=== PATIENT | female | born 1990 | race Caucasian/White ===

== ENCOUNTER 2022-07-14 14:16 | Inpatient (IN) ==
[2022-07-14] MEDS ORDERED: OXYTOCIN 30 UNITS/500 ML BAG IV PRN ×2 (15:07)
[2022-07-14] MEDS ORDERED: LIDOCAINE 1% LOCAL 20 ML VIAL INFIL PRN (15:07)
[2022-07-14 15:53] LABS: Hematocrit (blood only) 34.9 % (37.0-47.0); Hemoglobin 11.6 g/dl (12.0-16.0); Mean Corpuscular Hemoglobin 29.4 pg (25.0-34.0); Mean Corpuscular Hgb Conc 33.2 g/dL (32.0-36.0); Mean Corpuscular Volume 88.4 fL (80.0-100.0); Mean Platelet Volume 11.5 fL (9.4-12.4); Platelet Count 238 K/uL (130-400); RDW Coefficient of Variation 13.4 % (11.5-14.5); RDW Standard Deviation 43.2 fL (36.4-46.3); Red Blood Count 3.95 M/uL (4.20-5.40); White Blood Count 9.28 K/ul (4.8-10.8)
[2022-07-14] MEDS: LACTATED RINGER'S 1,000 ML IV PRN ×2 (15:55→19:19)
[2022-07-14 16:10] LABS: Albumin Globulin Ratio 1.1 (0.9-2); Albumin Level 3.4 gm/dl (3.4-5.0); BUN Creatinine Ratio 15.6 (10-20); Bilirubin,Total 0.3 mg/dl (0.2-1.0); Calcium 9.2 mg/dl (8.5-10.1); Creatinine Clr Calc Pharmacy 150.3 ml/min; Est GFR (African American) 135.9 ml/min; Est GFR (Non-African American) 117.2 ml/min; Globulin 3.2 gm/dl (2.5-4.0); Potassium 4.1 mmol/L (3.5-5.1); Total Protein 6.6 gm/dl (6.0-8.3)
[2022-07-14 16:32] LABS: Total Protein Urine Random 10.4 mg/dl (0-11.9)
[2022-07-14 16:38] LABS: Creatinine Urine Random 60.2 mg/dl; Protein Creatinine Ratio Urine 0.2 (0-0.2)
--- NOTE | 2022-07-14 16:45 | History & Physical Report ---
Date of Service July 14, 2022 Assessment & Plan (1) Supervision of normal intrauterine in primigravida: Plan: Admit to L&D. EFM/toco. Labs. I ordered preeclampsia labs with her admission labs, as initial BPs were elevated. We discussed plans - recommend merchant bulb for cervical ripening, with gradual increase of pitocin. She is agreeable with plan. Undecided on epidural. Merchant bulb was placed, 35cc sterile water. Tolerated well. Admission and Anticipated Discharge Date Admission Date: July 14, 2022 History of Present Illness Chief Complaint: nonreactive NST and 6/8 BPP at office Primary Care Provider: Trudi Roe 32yo @ 39 06/19, presented to office today in advance of tomorrow's scheduled IOL. She is undergoing testing d/t Sjogrens antibody, and nonstress test was nonreactive, and then subsequent BPP was 6/8. She was directed to L&D for induction of labor. with: Vegan diet -pnv, discussed Migraines- stopped propranolol and imitrex with . Will notify us if PCP needs to restart her beta maria esther, aware we would need growth scans. [place] [facility] [place] request[place]sjogrens antibody flagged 1.0 *[place] [facility] [place]Per [place] Consult Notes *Growth Scan Q4wks *Wkly NST's @ 36 wks *Rec Delivery at or after 39 weeks but not over 40 Allergies Allergy/AdvReac Type Severity Reaction Status Date / Time No Known Allergies Allergy Verified 07/14/22 15:49 Home Medications Medication Instructions Recorded Confirmed Type fexofenadine 180 mg tablet 180 mg PO DAILY 01/15/20 07/14/22 History (Beryl Allergy) vitamin B complex 1 tab PO DAILY 01/15/20 07/14/22 History prenat.vits,gavino,anq-riqp-fpcnk 1 tab PO DAILY 12/10/21 07/14/22 History Patient History Surgical History History of sinus surgery Family History (Updated 12/10/21 @ 09:55 by Cecilia Proctor) Other Cancer Diabetes Hypertension Social History (Updated 12/10/21 @ 09:56 by Cecilia Proctor) Smoking Status: Never smoker Second Hand Exposure: No; Do You Dip or Chew Tobacco: No; Tobacco Cessation Education Requested by Patient: No Hx Alcohol Use: No Hx Substance Use: No Preferred Language: Greenlandic Communication Ability: Effective Public Relations Manager Required: No Beliefs That Will Affect Care: None marital status: marital status details: Jesus Alberto (37) [phone] Current Living Situation: Spouse Current Living Situation Comment: Pt lives with her Jesus Alberto Cohen current occupational status: employed current occupation: Accademic Advisor @ [employer] Other Information That Helps Us Care for You: No Feels Safe at Home: Yes Safety Concerns: Feels Safe At This Time Sunscreen Use: Yes Assistive Devices: None Review of Systems All systems reviewed & are unremarkable except as noted in HPI & below Physical Exam Physical Exam: FHT Cat 1 [place] Rare SVE /high Constitutional: WD/WN, vitals as above Respiratory: normal respiratory effort, lungs clear to auscultation no respiratory distress Cardiovascular: Rate/Rhythm: regular rate and regular rhythm Gastrointestinal (Abdomen): Inspection/Auscultation: abdomen normal to inspection Percussion/Palpation: abdomen soft; abdomen nontender Gravid. No s/s chorio or abruption. Skin: no rashes, warm and dry Psychiatric: A+Ox3, euthymic affect Results & Data ([facility]) Vital Signs (Past 12 Hours) Vital Signs Temp Pulse Resp BP 07/14/22 14:58 37.6 C H 18 07/14/22 16:30 64 139/72 07/14/22 16:20 65 153/74 H 07/14/22 16:12 82 174/103 H 07/14/22 16:02 80 147/78 H 07/14/22 15:49 63 146/93 H 07/14/22 15:39 72 149/91 H 07/14/22 15:30 78 152/98 H 07/14/22 15:19 73 142/89 H 07/14/22 15:09 69 142/91 H 07/14/22 14:50 90 142/98 H 07/14/22 14:39 81 135/97 07/14/22 14:27 92 H 134/95 Coding Level of Care Code None Diagnoses Supervision of normal intrauterine in primigravida Z34.00
[2022-07-15] MEDS: LACTATED RINGER'S 1,000 ML IV PRN ×3 (00:47→11:10)
[2022-07-15] MEDS ORDERED: ePHEDrine sulfate 50 MG/ML AMP ONE (01:05)
[2022-07-15] MEDS ORDERED: LIDOCAINE 2%/EPINEPHRINE 1:200,000 20 ML SDV ONE ×2 (01:06→15:23)
[2022-07-15] MEDS ORDERED: fentaNYL 2MCG/ML ROPIVACAINE 1.25MG/ML 100 ML BAG EPI ONE (01:06)
[2022-07-15] MEDS ORDERED: BUPIVACAINE 0.25% 30 ML VIAL ONE (01:06)
[2022-07-15] MEDS ORDERED: fentaNYL citrate 100 MCG/2 ML VIAL ONE (01:06)
[2022-07-15] MEDS ORDERED: SODIUM CHLORIDE 0.9% INJ 10 ML VIAL ONE (01:06)
[2022-07-15] MEDS ORDERED: fentaNYL 2MCG/ML ROPIVACAINE 1.25MG/ML 100 ML BAG EPI PRN (02:00)
[2022-07-15] MEDS ORDERED: NALOXONE HCL 1 MG in SODIUM CHLORIDE 0.9% 1000ML 1,000 ML IV PRN ×2 (02:00→16:03)
[2022-07-15] MEDS ORDERED: diphenhydrAMINE 50 MG/ML VIAL IV PRN ×2 (02:00→16:03)
[2022-07-15] MEDS ORDERED: ePHEDrine sulfate 50 MG/ML AMP IV PRN ×2 (02:00→16:03)
[2022-07-15] MEDS ORDERED: NALOXONE HCL 0.4 MG/1 ML VIAL/CARP IV PRN ×2 (02:00→16:03)
[2022-07-15] MEDS ORDERED: NALBUPHINE HCL INJ 10 MG/ML AMP IV PRN ×2 (02:00→16:03)
--- NOTE | 2022-07-15 02:04 | Anesthesiology Consultation ---
Date of Service July 15, 2022 Assessment & Plan Chart Review Chart Review: Acceptable Risk for Labor Epidural Consults Requested none History Height/Weight Height: 5 ft 7 in Weight: 97.976 kg Allergies Allergy/AdvReac Type Severity Reaction Status Date / Time No Known Allergies Allergy Verified 07/14/22 15:49 Medications Home Medications Medication Instructions Recorded Confirmed Last Taken fexofenadine 180 mg tablet 180 mg PO DAILY 01/15/20 07/14/22 07/13/22 20:00 (Beryl Allergy) vitamin B complex 1 tab PO DAILY 01/15/20 07/14/22 07/13/22 2000 prenat.vits,gavino,mli-qwli-urvuh 1 tab PO DAILY 12/10/21 07/14/22 07/14/22 0800 Active Medications Generic Name Dose Route Start Last Admin Trade Name Freq PRN Reason Stop Dose Admin Oxytocin 30 units in 500 mls @ 17 mls/hr 07/14/22 15:07 07/14/22 21:00 Pitocin IV 07/16/22 15:06 1.02 units/hr .Q24H PRN 17 mls/hr Labor Induction/Augmentation Titration Protocol 1.02 UNITS/HR Lactated Ringer's 1,000 mls @ 125 mls/hr 07/14/22 15:07 07/15/22 00:54 Lr IV 07/16/22 15:06 999 mls/hr .Q8H PRN Infusion L&D Protocol Protocol Past Family History Family History (Updated 12/10/21 @ 09:55 by Cecilia Proctor) Other Cancer Diabetes Hypertension Past Surgical History Surgical History History of sinus surgery Social History Smoking Status: Never smoker Do You Dip or Chew Tobacco: No Hx Alcohol Use: No Hx Substance Use: No Physical Exam Vital Signs Last Vital Signs Temp 36.9 C 07/14/22 19:06 Pulse 74 07/15/22 02:03 Resp 18 07/14/22 19:06 BP 129/75 07/15/22 02:03 Pulse Ox 97 07/15/22 02:01 Testing Laboratory Results 07/14/22 15:27 07/14/22 15:27
[2022-07-15] MEDS ORDERED: CITRIC ACID/SODIUM CITRATE 15 ML UDC PO SCH (06:00)
--- NOTE | 2022-07-15 08:37 | Labor Progress Brief Note ---
Date of Service July 15, 2022 Subjective Comfortable with epidural. FHT Cat 1 [place] Q 2 SVE 5-6/70/-2 AROM clear with blood tinge Bladder emptied for 900cc. Continue labor. Assessment & Plan Admission and Anticipated Discharge Date Admission Date: July 14, 2022 Results & Data ([facility]) Vital Signs (Past 12 Hours) Vital Signs Temp Pulse Resp BP Pulse Ox 07/15/22 07:15 36.8 C 20 07/15/22 08:33 59 L 144/83 H 07/15/22 08:31 66 96 07/15/22 08:26 70 96 07/15/22 08:23 75 94 07/15/22 08:21 63 96 07/15/22 08:19 71 146/78 H 07/15/22 08:16 67 96 07/15/22 08:11 72 96 07/15/22 08:06 68 97 07/15/22 08:03 93 H 121/79 07/15/22 08:01 75 96 07/15/22 07:56 88 97 07/15/22 07:51 68 97 07/15/22 07:49 75 132/83 07/15/22 07:46 73 97 07/15/22 07:41 72 98 07/15/22 07:36 84 98 07/15/22 07:33 59 L 123/71 07/15/22 07:31 63 96 07/15/22 07:26 61 96 07/15/22 07:21 63 97 07/15/22 07:19 64 124/75 07/15/22 07:16 64 97 07/15/22 07:11 71 97 07/15/22 07:06 72 97 07/15/22 07:04 62 131/68 07/15/22 07:01 64 96 07/15/22 06:56 77 96 07/15/22 06:51 60 96 07/15/22 06:48 57 L 139/79 07/15/22 06:46 60 96 07/15/22 06:41 59 L 96 07/15/22 06:36 59 L 96 07/15/22 06:33 55 L 139/72 07/15/22 06:31 59 L 96 07/15/22 06:26 58 L 96 07/15/22 06:21 73 97 07/15/22 06:18 61 128/69 07/15/22 06:16 71 98 07/15/22 06:11 59 L 97 07/15/22 06:06 59 L 96 07/15/22 06:04 57 L 131/68 07/15/22 06:01 60 97 07/15/22 05:56 56 L 96 07/15/22 05:51 68 98 07/15/22 05:48 78 115/70 07/15/22 05:46 57 L 98 07/15/22 05:41 56 L 97 07/15/22 05:36 57 L 97 07/15/22 05:33 57 L 128/77 07/15/22 05:31 57 L 97 07/15/22 05:26 74 96 07/15/22 05:21 60 97 07/15/22 05:18 58 L 126/79 07/15/22 05:16 73 98 07/15/22 05:11 101 H 97 07/15/22 05:06 63 95 07/15/22 05:03 60 127/75 07/15/22 05:01 60 95 07/15/22 05:00 62 94 07/15/22 04:56 66 95 07/15/22 04:53 67 94 07/15/22 04:51 86 97 07/15/22 04:48 56 L 125/69 07/15/22 04:46 61 97 07/15/22 04:41 61 97 07/15/22 04:36 62 95 07/15/22 04:33 62 120/64 07/15/22 04:31 61 95 07/15/22 04:28 66 94 07/15/22 04:26 60 95 07/15/22 04:21 116 H 99 07/15/22 04:19 93 H 138/79 07/15/22 04:16 90 96 07/15/22 04:11 77 99 07/15/22 04:06 63 96 07/15/22 04:03 62 132/71 07/15/22 04:01 72 96 07/15/22 03:56 60 96 07/15/22 03:51 61 95 07/15/22 03:50 65 94 07/15/22 03:48 62 133/70 07/15/22 03:46 64 95 07/15/22 03:41 62 95 07/15/22 03:38 66 94 07/15/22 03:36 63 95 07/15/22 03:33 61 134/72 07/15/22 03:31 63 96 07/15/22 03:26 62 96 07/15/22 03:21 65 97 07/15/22 03:18 63 132/71 07/15/22 03:16 64 99 07/15/22 03:15 69 94 07/15/22 03:11 66 96 07/15/22 03:06 64 96 07/15/22 03:03 64 136/69 07/15/22 03:01 76 100 07/15/22 02:56 60 100 07/15/22 02:51 67 100 07/15/22 02:48 64 131/71 07/15/22 02:46 64 100 07/15/22 02:41 80 99 07/15/22 02:36 71 95 07/15/22 02:34 64 131/67 07/15/22 02:31 69 96 07/15/22 02:26 68 95 07/15/22 02:21 64 96 07/15/22 02:18 67 136/79 07/15/22 02:16 85 98 07/15/22 02:11 89 97 07/15/22 01:45 18 07/15/22 01:45 18 07/15/22 01:55 18 07/15/22 01:55 18 07/15/22 02:06 80 96 07/15/22 02:03 36.9 C 74 129/75 07/15/22 02:01 75 97 07/15/22 01:58 95 H 136/80 07/15/22 01:56 84 98 07/15/22 01:52 95 H 140/81 07/15/22 01:51 94 H 97 07/15/22 01:50 98 H 20 130/79 07/15/22 01:48 89 132/78 07/15/22 01:46 92 H 131/77 98 07/15/22 01:44 85 134/76 07/15/22 01:42 76 139/87 07/15/22 01:41 71 97 07/15/22 01:40 80 134/84 07/15/22 01:36 64 99 07/15/22 01:31 95 H 99 07/15/22 01:26 97 H 99 07/15/22 01:21 76 98 07/15/22 01:16 71 100 07/15/22 01:11 74 96 07/15/22 01:06 74 99 07/15/22 01:01 73 99 07/15/22 00:24 69 130/76 07/14/22 23:54 67 133/77 07/14/22 23:24 66 122/69 07/14/22 22:54 77 136/80 07/14/22 22:24 71 136/83 07/14/22 21:53 71 140/74 07/14/22 21:30 70 147/65 H 07/14/22 21:00 78 136/85 Coding Level of Care Code None
--- NOTE | 2022-07-15 11:12 | Labor Progress Brief Note ---
Date of Service July 15, 2022 Subjective Comfortable w/ epidural, feels ctx but not painful. Assessment & Plan (1) Supervision of normal intrauterine in primigravida: (2) SS-A antibody positive: (3) NIKOLAI positive: Plan 32 yo G1 at 39 2/7 [facility] admitted for IOL for +sjogrens antibody and NR NST yesterday VSS Fetus cat 2 - IUPC placed, ctx appear to have good strength but not frequent enough to be adequate. Will try to reposition to help with decels, consider amnio if variables persist. Reviewed events over the last 24 hrs with pt including pit having to be paused overnight due to variables. Pit currently at 7. If tracing does not improve with measures, discussed would likely recommend CS due to nrfht, intolerance of labor and inability to augment. Will continue to monitor Admission and Anticipated Discharge Date Admission Date: July 14, 2022 Physical Exam Genitourinary: Manual OB Exam: + cervical dilation 5 cm, + cervical effacement 50% and + station -2 OB Exam Monitor Tracing: + external FHT monitor used, + intra-uterine pressure catheter used (IUPC placed, q5) and + category II (150/mod/-accels/intermittent variable and lates) Results & Data ([facility]) Vital Signs (Past 12 Hours) Vital Signs Temp Pulse Resp BP Pulse Ox 07/15/22 07:15 98.2 F 20 07/15/22 10:56 66 95 07/15/22 10:51 82 99 07/15/22 10:46 78 98 07/15/22 10:41 80 98 07/15/22 10:36 60 95 07/15/22 10:33 56 L 129/69 07/15/22 10:31 62 94 07/15/22 10:29 59 L 94 07/15/22 10:26 59 L 95 07/15/22 10:21 62 95 07/15/22 10:19 59 L 126/66 07/15/22 10:16 61 95 07/15/22 10:11 60 95 07/15/22 10:06 61 96 07/15/22 10:03 75 125/62 07/15/22 10:01 64 97 07/15/22 09:56 65 97 07/15/22 09:51 63 97 07/15/22 09:49 57 L 126/68 07/15/22 09:46 62 97 07/15/22 09:41 63 96 07/15/22 09:40 64 93 07/15/22 09:36 65 96 07/15/22 09:33 60 134/79 07/15/22 09:31 61 95 07/15/22 09:26 59 L 97 07/15/22 09:21 66 96 07/15/22 09:19 57 L 137/84 07/15/22 09:16 66 96 07/15/22 09:11 67 97 07/15/22 09:06 63 97 07/15/22 09:03 66 138/82 07/15/22 09:01 71 96 07/15/22 08:56 65 96 07/15/22 08:50 18 07/15/22 08:50 98.6 F 18 07/15/22 08:51 68 97 07/15/22 08:48 61 139/84 07/15/22 08:46 69 97 07/15/22 08:41 61 96 07/15/22 08:36 62 96 07/15/22 08:33 59 L 144/83 H 07/15/22 08:31 66 96 07/15/22 08:26 70 96 07/15/22 08:23 75 94 07/15/22 08:21 63 96 07/15/22 08:19 71 146/78 H 07/15/22 08:16 67 96 07/15/22 08:11 72 96 07/15/22 08:06 68 97 07/15/22 08:03 93 H 121/79 07/15/22 08:01 75 96 07/15/22 07:56 88 97 07/15/22 07:51 68 97 07/15/22 07:49 75 132/83 07/15/22 07:46 73 97 07/15/22 07:41 72 98 07/15/22 07:36 84 98 07/15/22 07:33 59 L 123/71 07/15/22 07:31 63 96 07/15/22 07:26 61 96 07/15/22 07:21 63 97 07/15/22 07:19 64 124/75 07/15/22 07:16 64 97 07/15/22 07:11 71 97 07/15/22 07:06 72 97 07/15/22 07:04 62 131/68 07/15/22 07:01 64 96 07/15/22 06:56 77 96 07/15/22 06:51 60 96 07/15/22 06:48 57 L 139/79 07/15/22 06:46 60 96 07/15/22 06:41 59 L 96 07/15/22 06:36 59 L 96 07/15/22 06:33 55 L 139/72 07/15/22 06:31 59 L 96 07/15/22 06:26 58 L 96 07/15/22 06:21 73 97 07/15/22 06:18 61 128/69 07/15/22 06:16 71 98 07/15/22 06:11 59 L 97 07/15/22 06:06 59 L 96 07/15/22 06:04 57 L 131/68 07/15/22 06:01 60 97 07/15/22 05:56 56 L 96 07/15/22 05:51 68 98 07/15/22 05:48 78 115/70 07/15/22 05:46 57 L 98 07/15/22 05:41 56 L 97 07/15/22 05:36 57 L 97 07/15/22 05:33 57 L 128/77 07/15/22 05:31 57 L 97 07/15/22 05:26 74 96 07/15/22 05:21 60 97 07/15/22 05:18 58 L 126/79 07/15/22 05:16 73 98 07/15/22 05:11 101 H 97 07/15/22 05:06 63 95 07/15/22 05:03 60 127/75 07/15/22 05:01 60 95 07/15/22 05:00 62 94 07/15/22 04:56 66 95 07/15/22 04:53 67 94 07/15/22 04:51 86 97 07/15/22 04:48 56 L 125/69 07/15/22 04:46 61 97 07/15/22 04:41 61 97 07/15/22 04:36 62 95 07/15/22 04:33 62 120/64 07/15/22 04:31 61 95 07/15/22 04:28 66 94 07/15/22 04:26 60 95 07/15/22 04:21 116 H 99 07/15/22 04:19 93 H 138/79 07/15/22 04:16 90 96 07/15/22 04:11 77 99 07/15/22 04:06 63 96 07/15/22 04:03 62 132/71 07/15/22 04:01 72 96 07/15/22 03:56 60 96 07/15/22 03:51 61 95 07/15/22 03:50 65 94 07/15/22 03:48 62 133/70 07/15/22 03:46 64 95 07/15/22 03:41 62 95 07/15/22 03:38 66 94 07/15/22 03:36 63 95 07/15/22 03:33 61 134/72 07/15/22 03:31 63 96 07/15/22 03:26 62 96 07/15/22 03:21 65 97 07/15/22 03:18 63 132/71 07/15/22 03:16 64 99 07/15/22 03:15 69 94 07/15/22 03:11 66 96 07/15/22 03:06 64 96 07/15/22 03:03 64 136/69 07/15/22 03:01 76 100 07/15/22 02:56 60 100 07/15/22 02:51 67 100 07/15/22 02:48 64 131/71 07/15/22 02:46 64 100 07/15/22 02:41 80 99 07/15/22 02:36 71 95 07/15/22 02:34 64 131/67 07/15/22 02:31 69 96 07/15/22 02:26 68 95 07/15/22 02:21 64 96 07/15/22 02:18 67 136/79 07/15/22 02:16 85 98 07/15/22 02:11 89 97 07/15/22 01:45 18 07/15/22 01:45 18 07/15/22 01:55 18 07/15/22 01:55 18 07/15/22 02:06 80 96 07/15/22 02:03 98.4 F 74 129/75 07/15/22 02:01 75 97 07/15/22 01:58 95 H 136/80 07/15/22 01:56 84 98 02/23 01:52 95 H 140/81 07/15/22 01:51 94 H 97 07/15/22 01:50 98 H 20 130/79 07/15/22 01:48 89 132/78 07/15/22 01:46 92 H 131/77 98 07/15/22 01:44 85 134/76 07/15/22 01:42 76 139/87 07/15/22 01:41 71 97 07/15/22 01:40 80 134/84 07/15/22 01:36 64 99 07/15/22 01:31 95 H 99 07/15/22 01:26 97 H 99 07/15/22 01:21 76 98 07/15/22 01:16 71 100 07/15/22 01:11 74 96 07/15/22 01:06 74 99 07/15/22 01:01 73 99 07/15/22 00:24 69 130/76 07/14/22 23:54 67 133/77 07/14/22 23:24 66 122/69 Coding Level of Care Code None Diagnoses Supervision of normal intrauterine in primigravida Z34.00 SS-A antibody positive R76.8 NIKOLAI positive R76.8
--- NOTE | 2022-07-15 14:09 | Labor Progress Brief Note ---
Date of Service July 15, 2022 Subjective Comfortable w/ epidural Assessment & Plan (1) Supervision of normal intrauterine in primigravida: (2) SS-A antibody positive: (3) NIKOLAI positive: Plan 32 yo G1 at 39 2/7 [facility] admitted for IOL for +sjogrens antibody and NR NST yesterday VSS Fetus cat 2 - pit at 11, has periods of reassuring cat 2 and periods with more variables. Continue to monitor GBS neg Epidural in place Admission and Anticipated Discharge Date Admission Date: July 14, 2022 Physical Exam Genitourinary: Manual OB Exam: + cervical dilation 5 cm, + cervical effacement 50% and + station -2 OB Exam Monitor Tracing: + external FHT monitor used, + intra-uterine pressure catheter used (q3-5) and + category II (155/mod/- accels/intermittent variable and lates) Results & Data ([facility]) Vital Signs (Past 12 Hours) Vital Signs Temp Pulse Resp BP Pulse Ox 07/15/22 07:15 98.2 F 20 07/15/22 14:04 66 142/74 H 07/15/22 14:01 67 96 07/15/22 13:56 72 96 07/15/22 13:51 62 96 07/15/22 13:49 62 142/82 H 07/15/22 13:46 61 96 07/15/22 13:43 60 94 07/15/22 13:41 59 L 96 07/15/22 13:36 62 96 07/15/22 13:34 61 131/71 07/15/22 13:31 61 94 07/15/22 13:32 62 94 07/15/22 13:26 61 96 07/15/22 13:21 61 95 07/15/22 13:19 59 L 128/63 07/15/22 13:16 61 95 07/15/22 13:11 63 96 07/15/22 13:00 18 07/15/22 13:00 18 07/15/22 13:06 63 97 07/15/22 13:03 62 123/60 07/15/22 13:01 62 96 07/15/22 12:56 64 97 07/15/22 12:51 61 97 07/15/22 12:49 59 L 118/61 07/15/22 12:46 59 L 98 07/15/22 12:41 81 98 02/02/23 12:36 63 97 07/15/22 12:33 64 133/80 07/15/22 12:31 63 99 07/15/22 12:26 66 97 07/15/22 12:21 69 98 07/15/22 12:19 75 132/77 07/15/22 12:16 102 H 98 07/15/22 12:11 78 99 07/15/22 12:06 89 98 07/15/22 12:01 88 99 07/15/22 11:28 18 07/15/22 11:28 99.1 F 18 07/15/22 11:56 106 H 99 07/15/22 11:54 86 94 07/15/22 11:51 97 H 96 07/15/22 11:48 78 131/76 07/15/22 11:46 86 98 07/15/22 11:41 85 97 07/15/22 11:38 85 91 07/15/22 10:30 18 07/15/22 10:30 18 07/15/22 11:36 95 H 96 07/15/22 11:35 78 125/69 07/15/22 11:31 91 H 96 07/15/22 11:26 72 97 07/15/22 11:24 90 93 07/15/22 11:21 80 96 07/15/22 11:20 67 136/79 07/15/22 11:16 70 96 07/15/22 11:11 91 H 97 07/15/22 11:06 70 94 07/15/22 11:01 71 95 07/15/22 10:56 66 95 07/15/22 10:51 82 99 07/15/22 10:46 78 98 07/15/22 10:41 80 98 07/15/22 10:36 60 95 07/15/22 10:33 56 L 129/69 07/15/22 10:31 62 94 07/15/22 10:29 59 L 94 07/15/22 10:26 59 L 95 07/15/22 10:21 62 95 07/15/22 10:19 59 L 126/66 07/15/22 10:16 61 95 07/15/22 10:11 60 95 07/15/22 10:06 61 96 07/15/22 10:03 75 125/62 07/15/22 10:01 64 97 07/15/22 09:56 65 97 07/15/22 09:51 63 97 07/15/22 09:49 57 L 126/68 07/15/22 09:46 62 97 07/15/22 09:41 63 96 07/15/22 09:40 64 93 07/15/22 09:36 65 96 07/15/22 09:33 60 134/79 07/15/22 09:31 61 95 07/15/22 09:26 59 L 97 07/15/22 09:21 66 96 07/15/22 09:19 57 L 137/84 07/15/22 09:16 66 96 07/15/22 09:11 67 97 07/15/22 09:06 63 97 07/15/22 09:03 66 138/82 07/15/22 09:01 71 96 07/15/22 08:56 65 96 07/15/22 08:50 18 07/15/22 08:50 98.6 F 18 07/15/22 08:51 68 97 07/15/22 08:48 61 139/84 07/15/22 08:46 69 97 07/15/22 08:41 61 96 07/15/22 08:36 62 96 07/15/22 08:33 59 L 144/83 H 07/15/22 08:31 66 96 07/15/22 08:26 70 96 07/15/22 08:23 75 94 07/15/22 08:21 63 96 07/15/22 08:19 71 146/78 H 07/15/22 08:16 67 96 07/15/22 08:11 72 96 07/15/22 08:06 68 97 07/15/22 08:03 93 H 121/79 07/15/22 08:01 75 96 07/15/22 07:56 88 97 07/15/22 07:51 68 97 07/15/22 07:49 75 132/83 07/15/22 07:46 73 97 07/15/22 07:41 72 98 07/15/22 07:36 84 98 07/15/22 07:33 59 L 123/71 07/15/22 07:31 63 96 07/15/22 07:26 61 96 07/15/22 07:21 63 97 07/15/22 07:19 64 124/75 07/15/22 07:16 64 97 07/15/22 07:11 71 97 07/15/22 07:06 72 97 07/15/22 07:04 62 131/68 07/15/22 07:01 64 96 07/15/22 06:56 77 96 07/15/22 06:51 60 96 07/15/22 06:48 57 L 139/79 07/15/22 06:46 60 96 07/15/22 06:41 59 L 96 07/15/22 06:36 59 L 96 07/15/22 06:33 55 L 139/72 07/15/22 06:31 59 L 96 07/15/22 06:26 58 L 96 07/15/22 06:21 73 97 07/15/22 06:18 61 128/69 07/15/22 06:16 71 98 07/15/22 06:11 59 L 97 07/15/22 06:06 59 L 96 07/15/22 06:04 57 L 131/68 07/15/22 06:01 60 97 07/15/22 05:56 56 L 96 07/15/22 05:51 68 98 07/15/22 05:48 78 115/70 07/15/22 05:46 57 L 98 07/15/22 05:41 56 L 97 07/15/22 05:36 57 L 97 07/15/22 05:33 57 L 128/77 07/15/22 05:31 57 L 97 07/15/22 05:26 74 96 07/15/22 05:21 60 97 07/15/22 05:18 58 L 126/79 07/15/22 05:16 73 98 07/15/22 05:11 101 H 97 07/15/22 05:06 63 95 07/15/22 05:03 60 127/75 07/15/22 05:01 60 95 07/15/22 05:00 62 94 07/15/22 04:56 66 95 07/15/22 04:53 67 94 07/15/22 04:51 86 97 07/15/22 04:48 56 L 125/69 07/15/22 04:46 61 97 07/15/22 04:41 61 97 07/15/22 04:36 62 95 07/15/22 04:33 62 120/64 07/15/22 04:31 61 95 07/15/22 04:28 66 94 07/15/22 04:26 60 95 07/15/22 04:21 116 H 99 07/15/22 04:19 93 H 138/79 07/15/22 04:16 90 96 07/15/22 04:11 77 99 07/15/22 04:06 63 96 07/15/22 04:03 62 132/71 07/15/22 04:01 72 96 07/15/22 03:56 60 96 07/15/22 03:51 61 95 07/15/22 03:50 65 94 07/15/22 03:48 62 133/70 07/15/22 03:46 64 95 07/15/22 03:41 62 95 07/15/22 03:38 66 94 07/15/22 03:36 63 95 07/15/22 03:33 61 134/72 07/15/22 03:31 63 96 07/15/22 03:26 62 96 07/15/22 03:21 65 97 07/15/22 03:18 63 132/71 07/15/22 03:16 64 99 07/15/22 03:15 69 94 07/15/22 03:11 66 96 07/15/22 03:06 64 96 07/15/22 03:03 64 136/69 07/15/22 03:01 76 100 07/15/22 02:56 60 100 07/15/22 02:51 67 100 07/15/22 02:48 64 131/71 07/15/22 02:46 64 100 07/15/22 02:41 80 99 07/15/22 02:36 71 95 07/15/22 02:34 64 131/67 07/15/22 02:31 69 96 07/15/22 02:26 68 95 07/15/22 02:21 64 96 07/15/22 02:18 67 136/79 07/15/22 02:16 85 98 07/15/22 02:11 89 97 Coding Level of Care Code None Diagnoses Supervision of normal intrauterine in primigravida Z34.00 SS-A antibody positive R76.8 NIKOLAI positive R76.8
[2022-07-15] MEDS ORDERED: AZITHROMYCIN 500 MG in DEXTROSE 5% 250 ML IV STA (15:21)
--- NOTE | 2022-07-15 15:21 | Labor Progress Brief Note ---
Date of Service July 15, 2022 Assessment & Plan (1) Supervision of normal intrauterine in primigravida: (2) SS-A antibody positive: (3) NIKOLAI positive: Plan 32 yo G1 at 39 2/7 wga admitted for IOL for +sjogrens antibody and NR NST yesterday VSS Pit at 11 with periods of reassuring cat 2 and periods of more frequent variables and lates. Has begun to have more consistent variables and lates despite position changing that previously improved tracing, still moderate jason iability but periods of minimal variability as well. Discussed with pt recommendation for CS given nrfht and inability to augment, pt in agreement. Discussed indications, risks, benefits, alternatives with risks including infection, bleeding, injury to adjacent structures (bowel, bladder, ureters, blood vessels, nerves, baby), possible need for blood transfusion and/or life saving hysterectomy, VTE. Consent reviewed in detail w/ pt and signed after all questions answered to her satisfaction. Anesthesia and peds made aware, will order ancef and azithro for antibx ppx. Admission and Anticipated Discharge Date Admission Date: July 14, 2022 Results & Data ([facility]) Vital Signs (Past 12 Hours) Vital Signs Temp Pulse Resp BP Pulse Ox 07/15/22 07:15 98.2 F 20 07/15/22 15:16 84 99 07/15/22 15:11 69 99 07/15/22 15:00 18 07/15/22 15:00 18 07/15/22 15:06 74 98 07/15/22 15:04 65 129/58 L 07/15/22 15:01 60 97 07/15/22 14:56 81 97 07/15/22 14:51 90 96 07/15/22 14:50 87 131/73 07/15/22 14:46 84 96 07/15/22 14:41 84 96 07/15/22 14:36 81 96 07/15/22 14:35 79 142/86 H 07/15/22 14:33 98 H 94 07/15/22 14:31 88 96 07/15/22 14:26 71 96 07/15/22 14:21 58 L 96 07/15/22 14:18 68 142/90 H 07/15/22 14:16 70 95 07/15/22 14:11 63 96 07/15/22 14:06 99 H 95 07/15/22 14:04 66 142/74 H 07/15/22 14:01 67 96 07/15/22 13:56 72 96 07/15/22 13:51 62 96 07/15/22 13:49 62 142/82 H 07/15/22 13:46 61 96 07/15/22 13:43 60 94 07/15/22 13:41 59 L 96 07/15/22 13:36 62 96 07/15/22 13:34 61 131/71 07/15/22 13:31 61 94 07/15/22 13:32 62 94 07/15/22 13:26 61 96 07/15/22 13:21 61 95 07/15/22 13:19 59 L 128/63 07/15/22 13:16 61 95 07/15/22 13:11 63 96 07/15/22 13:00 18 07/15/22 13:00 18 07/15/22 13:06 63 97 07/15/22 13:03 62 123/60 07/15/22 13:01 62 96 07/15/22 12:56 64 97 07/15/22 12:51 61 97 07/15/22 12:49 59 L 118/61 07/15/22 12:46 59 L 98 07/15/22 12:41 81 98 07/15/22 12:36 63 97 07/15/22 12:33 64 133/80 07/15/22 12:31 63 99 07/15/22 12:26 66 97 07/15/22 12:21 69 98 07/15/22 12:19 75 132/77 07/15/22 12:16 102 H 98 07/15/22 12:11 78 99 07/15/22 12:06 89 98 07/15/22 12:01 88 99 07/15/22 11:28 18 07/15/22 11:28 99.1 F 18 07/15/22 11:56 106 H 99 07/15/22 11:54 86 94 07/15/22 11:51 97 H 96 07/15/22 11:48 78 131/76 07/15/22 11:46 86 98 07/15/22 11:41 85 97 07/15/22 11:38 85 91 07/15/22 10:30 18 07/15/22 10:30 18 07/15/22 11:36 95 H 96 07/15/22 11:35 78 125/69 07/15/22 11:31 91 H 96 07/15/22 11:26 72 97 07/15/22 11:24 90 93 07/15/22 11:21 80 96 07/15/22 11:20 67 136/79 07/15/22 11:16 70 96 07/15/22 11:11 91 H 97 07/15/22 11:06 70 94 07/15/22 11:01 71 95 07/15/22 10:56 66 95 07/15/22 10:51 82 99 07/15/22 10:46 78 98 07/15/22 10:41 80 98 07/15/22 10:36 60 95 07/15/22 10:33 56 L 129/69 07/15/22 10:31 62 94 07/15/22 10:29 59 L 94 07/15/22 10:26 59 L 95 07/15/22 10:21 62 95 07/15/22 10:19 59 L 126/66 07/15/22 10:16 61 95 07/15/22 10:11 60 95 07/15/22 10:06 61 96 07/15/22 10:03 75 125/62 07/15/22 10:01 64 97 07/15/22 09:56 65 97 07/15/22 09:51 63 97 07/15/22 09:49 57 L 126/68 07/15/22 09:46 62 97 07/15/22 09:41 63 96 07/15/22 09:40 64 93 07/15/22 09:36 65 96 07/15/22 09:33 60 134/79 07/15/22 09:31 61 95 07/15/22 09:26 59 L 97 07/15/22 09:21 66 96 07/15/22 09:19 57 L 137/84 07/15/22 09:16 66 96 07/15/22 09:11 67 97 07/15/22 09:06 63 97 07/15/22 09:03 66 138/82 07/15/22 09:01 71 96 07/15/22 08:56 65 96 07/15/22 08:50 18 07/15/22 08:50 98.6 F 18 07/15/22 08:51 68 97 07/15/22 08:48 61 139/84 07/15/22 08:46 69 97 07/15/22 08:41 61 96 07/15/22 08:36 62 96 07/15/22 08:33 59 L 144/83 H 07/15/22 08:31 66 96 07/15/22 08:26 70 96 07/15/22 08:23 75 94 07/15/22 08:21 63 96 07/15/22 08:19 71 146/78 H 07/15/22 08:16 67 96 07/15/22 08:11 72 96 07/15/22 08:06 68 97 07/15/22 08:03 93 H 121/79 07/15/22 08:01 75 96 07/15/22 07:56 88 97 07/15/22 07:51 68 97 07/15/22 07:49 75 132/83 07/15/22 07:46 73 97 07/15/22 07:41 72 98 07/15/22 07:36 84 98 07/15/22 07:33 59 L 123/71 07/15/22 07:31 63 96 07/15/22 07:26 61 96 07/15/22 07:21 63 97 07/15/22 07:19 64 124/75 07/15/22 07:16 64 97 07/15/22 07:11 71 97 07/15/22 07:06 72 97 07/15/22 07:04 62 131/68 07/15/22 07:01 64 96 07/15/22 06:56 77 96 07/15/22 06:51 60 96 07/15/22 06:48 57 L 139/79 07/15/22 06:46 60 96 07/15/22 06:41 59 L 96 07/15/22 06:36 59 L 96 07/15/22 06:33 55 L 139/72 07/15/22 06:31 59 L 96 07/15/22 06:26 58 L 96 07/15/22 06:21 73 97 07/15/22 06:18 61 128/69 07/15/22 06:16 71 98 07/15/22 06:11 59 L 97 07/15/22 06:06 59 L 96 07/15/22 06:04 57 L 131/68 07/15/22 06:01 60 97 07/15/22 05:56 56 L 96 07/15/22 05:51 68 98 07/15/22 05:48 78 115/70 07/15/22 05:46 57 L 98 07/15/22 05:41 56 L 97 07/15/22 05:36 57 L 97 07/15/22 05:33 57 L 128/77 07/15/22 05:31 57 L 97 07/15/22 05:26 74 96 07/15/22 05:21 60 97 07/15/22 05:18 58 L 126/79 07/15/22 05:16 73 98 07/15/22 05:11 101 H 97 07/15/22 05:06 63 95 07/15/22 05:03 60 127/75 07/15/22 05:01 60 95 07/15/22 05:00 62 94 07/15/22 04:56 66 95 07/15/22 04:53 67 94 07/15/22 04:51 86 97 07/15/22 04:48 56 L 125/69 07/15/22 04:46 61 97 07/15/22 04:41 61 97 07/15/22 04:36 62 95 07/15/22 04:33 62 120/64 07/15/22 04:31 61 95 07/15/22 04:28 66 94 07/15/22 04:26 60 95 07/15/22 04:21 116 H 99 07/15/22 04:19 93 H 138/79 07/15/22 04:16 90 96 07/15/22 04:11 77 99 07/15/22 04:06 63 96 07/15/22 04:03 62 132/71 07/15/22 04:01 72 96 07/15/22 03:56 60 96 07/15/22 03:51 61 95 07/15/22 03:50 65 94 07/15/22 03:48 62 133/70 07/15/22 03:46 64 95 07/15/22 03:41 62 95 07/15/22 03:38 66 94 07/15/22 03:36 63 95 07/15/22 03:33 61 134/72 07/15/22 03:31 63 96 07/15/22 03:26 62 96 07/15/22 03:21 65 97 Coding Level of Care Code None Diagnoses Supervision of normal intrauterine in primigravida Z34.00 SS-A antibody positive R76.8 NIKOLAI positive R76.8
[2022-07-15] MEDS ORDERED: MoRPHine SULFATE PF 1 MG/ML 10 ML AMP/VIAL ONE (15:23)
--- NOTE | 2022-07-15 15:24 | Anesthesiology Consultation ---
Date of Service July 15, 2022 Assessment & Plan (1) Encounter for pre-operative examination: Chart Review Chart Review: Acceptable Risk for Surgery Consults Requested none ASA [id number] Proposed Anesthesia Anesthesia Type: Labor Epidural Risk / Benefits Reviewed With: PT / POA / Parent / Guardian, Accepts Plan and Informed Consent Obtained History Surgery Operation Date: 07/15/22 15:10 Proposed Procedures p Section in - Ivonne Avendano MD Height/Weight Height: 5 ft 7 in Weight: 97.976 kg Allergies Allergy/AdvReac Type Severity Reaction Status Date / Time No Known Allergies Allergy Verified 07/14/22 15:49 Medications Home Medications Medication Instructions Recorded Confirmed Last Taken fexofenadine 180 mg tablet 180 mg PO DAILY 01/15/20 07/14/22 07/13/22 20:00 (Beryl Allergy) vitamin B complex 1 tab PO DAILY 01/15/20 07/14/22 07/13/221999 prenat.vits,gavino,hmy-gkjr-xbgrx 1 tab PO DAILY 12/10/21 07/14/22 07/14/22 0800 Active Medications Generic Name Dose Route Start Last Admin Trade Name Freq PRN Reason Stop Dose Admin Oxytocin 30 units in 500 mls @ 11 mls/hr 07/14/22 15:07 07/15/22 15:08 Pitocin IV 07/16/22 15:06 Infused .Q24H PRN Titration Labor Induction/Augmentation Protocol 0.66 UNITS/HR Lactated Ringer's 1,000 mls @ 125 mls/hr 07/14/22 15:07 07/15/22 11:10 Lr IV 07/16/22 15:06 125 mls/hr .Q8H PRN Administration L&D Protocol Protocol Ropivacaine 100 ml 07/15/22 02:00 07/15/22 11:11 Fentanyl 2mcg/Ml Ropivacaine 1.25mg/Ml 100 Ml Bag EPI 07/16/22 01:59 100 ml PRN PRN Administration Pain R/T Labor Protocol NPO Date Last Intake of Fluids: 07/15/22 Time Last Intake of Fluids: 01:00 Date Last Intake of Solids: 07/14/22 Time Last Intake of Solids: 09:00 Exercise / Class Metabolic Activity II 4-5 Yardwork/Stairs/Walk up hill Past Family History Family History Other Cancer Diabetes Hypertension Past Surgical History Surgical History History of sinus surgery Past Anesthesia History No Hx of Anesthesia Complications and No Family Hx of Anesthesia Complications History of PONV No Hx of PONV and No Hx of Motion Sickness Social History Smoking Status: Never smoker Do You Dip or Chew Tobacco: No Hx Alcohol Use: No Hx Substance Use: No Physical Exam Vital Signs Last Vital Signs Temp 99.1 F 07/15/22 11:28 Pulse 84 07/15/22 15:16 Resp 18 07/15/22 15:00 BP 129/58 L 07/15/22 15:04 Pulse Ox 99 07/15/22 15:16 ENMT Mouth: no dentition abnormality Thyromental Distance: > or= 3.5 Finger Breadths Mallampati Class: II Neck normal visual inspection Respiratory normal respiratory effort Auscultation: lungs clear to auscultation bilaterally Cardiovascular Rate/Rhythm: regular rate and regular rhythm Testing Laboratory Results 07/14/22 15:27 07/14/22 15:27
[2022-07-15] MEDS ORDERED: ceFAZolin 2000MG 2,000 MG/15 ML SYR IV SCH (15:30)
[2022-07-15] MEDS ORDERED: LACTATED RINGER'S 500 ML IV PRN (16:03)
[2022-07-15] MEDS ORDERED: NALOXONE HCL 0.08 MG in SYRINGE 1.8 ML IV PRN (16:03)
[2022-07-15] MEDS ORDERED: MoRPHine SULFATE PF 1 MG/ML 10 ML AMP/VIAL INT SPINAL ONE (16:03)
[2022-07-15] MEDS ORDERED: MEPERIDINE HCL 25 MG/ML CARP/VIAL IV PRN (16:03)
[2022-07-15] MEDS ORDERED: ONDANSETRON INJ 2 MG/ML 2 ML VIAL IV PRN (16:03)
[2022-07-15] MEDS ORDERED: SODIUM CHLORIDE 0.9% 1000ML 1,000 ML IV SCH (16:15)
[2022-07-15] MEDS ORDERED: DC INTRASPINAL MORPHINE SCH (16:15)
[2022-07-15] MEDS ORDERED: NO NARCOTICS OR SEDATIVES SCH (16:15)
[2022-07-15] MEDS ORDERED: ONDANSETRON INJ 2 MG/ML 2 ML VIAL ONE (16:26)
[2022-07-15 16:36] LABS: Base Excess Cord Arterial Bld -2.5 mEq/L (-9-1.8); Base Excess Cord Venous Blood -3.6 mEq/L (-7.7-1.9); CO2 Cord Arterial Blood 39 mmHg (39.1-73.5); Cord Venous Blood HCO3 21 mmol/L (18.4-26.8); Cord Venous Blood PCO2 35 mmHg (30.4-57.2); Cord Venous Blood PO2 28 mmHg (14.1-43.3); Cord Venous Blood pH 7.38 (7.20-7.44); HCO3 Cord Arterial Blood 23 mmol/L (19.7-28.5); O2 Saturation Cord Venous Bld < 60.0 % (<68); Oxygen Sat Cord Arterial Blood < 60.0 % (<60); PO2 Cord Arterial Blood 23 mmHg (4.1-31.7); pH Cord Arterial Blood 7.37 (7.1-7.38)
[2022-07-15] MEDS ORDERED: PHENYLEPHRINE HCL 10 MG/ML VIAL ONE (16:57)
[2022-07-15] MEDS ORDERED: KETOROLAC 30 MG/ML VIAL ONE (16:57)
--- NOTE | 2022-07-15 17:11 | Anesthesiology Progress Note ---
Date of Service July 15, 2022 Anesthesia Post Procedure Vital Signs Vital Signs: Temp Pulse Resp BP Pulse Ox 07/15/22 07:15 98.2 F 20 07/14/22 19:02 98.4 F 18 07/15/22 17:09 93 H 124/86 07/15/22 15:34 18 07/15/22 15:34 99.1 F 18 07/15/22 15:31 69 99 07/15/22 15:26 68 99 07/15/22 15:21 92 H 98 07/15/22 15:16 84 99 07/15/22 15:11 69 99 07/15/22 15:00 18 07/15/22 15:00 18 07/15/22 15:06 74 98 07/15/22 15:04 65 129/58 L 07/15/22 15:01 60 97 07/15/22 14:56 81 97 07/15/22 14:51 90 96 07/15/22 14:50 87 131/73 07/15/22 14:46 84 96 07/15/22 14:41 84 96 07/15/22 14:36 81 96 07/15/22 14:35 79 142/86 H 07/15/22 14:33 98 H 94 07/15/22 14:31 88 96 07/15/22 14:26 71 96 07/15/22 14:21 58 L 96 07/15/22 14:18 68 142/90 H 07/15/22 14:16 70 95 07/15/22 14:11 63 96 07/15/22 14:06 99 H 95 07/15/22 14:04 66 142/74 H 07/15/22 14:01 67 96 07/15/22 13:56 72 96 07/15/22 13:51 62 96 07/15/22 13:49 62 142/82 H 07/15/22 13:46 61 96 07/15/22 13:43 60 94 07/15/22 13:41 59 L 96 07/15/22 13:36 62 96 07/15/22 13:34 61 131/71 07/15/22 13:31 61 94 07/15/22 13:32 62 94 07/15/22 13:26 61 96 07/15/22 13:21 61 95 07/15/22 13:19 59 L 128/63 02/02/23 13:16 61 95 07/15/22 13:11 63 96 07/15/22 13:00 18 07/15/22 13:00 18 07/15/22 13:06 63 97 07/15/22 13:03 62 123/60 07/15/22 13:01 62 96 07/15/22 12:56 64 97 07/15/22 12:51 61 97 07/15/22 12:49 59 L 118/61 07/15/22 12:46 59 L 98 07/15/22 12:41 81 98 07/15/22 12:36 63 97 07/15/22 12:33 64 133/80 07/15/22 12:31 63 99 07/15/22 12:26 66 97 07/15/22 12:21 69 98 07/15/22 12:19 75 132/77 07/15/22 12:16 102 H 98 07/15/22 12:11 78 99 07/15/22 12:06 89 98 07/15/22 12:01 88 99 07/15/22 11:28 18 07/15/22 11:28 99.1 F 18 07/15/22 11:56 106 H 99 07/15/22 11:54 86 94 07/15/22 11:51 97 H 96 07/15/22 11:48 78 131/76 07/15/22 11:46 86 98 07/15/22 11:41 85 97 07/15/22 11:38 85 91 07/15/22 10:30 18 07/15/22 10:30 18 07/15/22 11:36 95 H 96 07/15/22 11:35 78 125/69 07/15/22 11:31 91 H 96 07/15/22 11:26 72 97 07/15/22 11:24 90 93 07/15/22 11:21 80 96 07/15/22 11:20 67 136/79 07/15/22 11:16 70 96 07/15/22 11:11 91 H 97 07/15/22 11:06 70 94 07/15/22 11:01 71 95 07/15/22 10:56 66 95 07/15/22 10:51 82 99 07/15/22 10:46 78 98 07/15/22 10:41 80 98 02/02/23 10:36 60 95 07/15/22 10:33 56 L 129/69 07/15/22 10:31 62 94 07/15/22 10:29 59 L 94 07/15/22 10:26 59 L 95 07/15/22 10:21 62 95 07/15/22 10:19 59 L 126/66 07/15/22 10:16 61 95 07/15/22 10:11 60 95 07/15/22 10:06 61 96 07/15/22 10:03 75 125/62 07/15/22 10:01 64 97 07/15/22 09:56 65 97 07/15/22 09:51 63 97 07/15/22 09:49 57 L 126/68 07/15/22 09:46 62 97 07/15/22 09:41 63 96 07/15/22 09:40 64 93 07/15/22 09:36 65 96 07/15/22 09:33 60 134/79 07/15/22 09:31 61 95 07/15/22 09:26 59 L 97 07/15/22 09:21 66 96 07/15/22 09:19 57 L 137/84 07/15/22 09:16 66 96 07/15/22 09:11 67 97 07/15/22 09:06 63 97 07/15/22 09:03 66 138/82 07/15/22 09:01 71 96 07/15/22 08:56 65 96 07/15/22 08:50 18 07/15/22 08:50 98.6 F 18 07/15/22 08:51 68 97 07/15/22 08:48 61 139/84 07/15/22 08:46 69 97 07/15/22 08:41 61 96 07/15/22 08:36 62 96 07/15/22 08:33 59 L 144/83 H 07/15/22 08:31 66 96 07/15/22 08:26 70 96 07/15/22 08:23 75 94 07/15/22 08:21 63 96 07/15/22 08:19 71 146/78 H 07/15/22 08:16 67 96 07/15/22 08:11 72 96 07/15/22 08:06 68 97 07/15/22 08:03 93 H 121/79 07/15/22 08:01 75 96 07/15/22 07:56 88 97 07/15/22 07:51 68 97 07/15/22 07:49 75 132/83 07/15/22 07:46 73 97 07/15/22 07:41 72 98 07/15/22 07:36 84 98 07/15/22 07:33 59 L 123/71 07/15/22 07:31 63 96 07/15/22 07:26 61 96 07/15/22 07:21 63 97 07/15/22 07:19 64 124/75 07/15/22 07:16 64 97 07/15/22 07:11 71 97 07/15/22 07:06 72 97 07/15/22 07:04 62 131/68 07/15/22 07:01 64 96 07/15/22 06:56 77 96 07/15/22 06:51 60 96 07/15/22 06:48 57 L 139/79 07/15/22 06:46 60 96 07/15/22 06:41 59 L 96 07/15/22 06:36 59 L 96 07/15/22 06:33 55 L 139/72 07/15/22 06:31 59 L 96 07/15/22 06:26 58 L 96 07/15/22 06:21 73 97 07/15/22 06:18 61 128/69 07/15/22 06:16 71 98 07/15/22 06:11 59 L 97 07/15/22 06:06 59 L 96 07/15/22 06:04 57 L 131/68 07/15/22 06:01 60 97 07/15/22 05:56 56 L 96 07/15/22 05:51 68 98 07/15/22 05:48 78 115/70 07/15/22 05:46 57 L 98 07/15/22 05:41 56 L 97 07/15/22 05:36 57 L 97 07/15/22 05:33 57 L 128/77 07/15/22 05:31 57 L 97 07/15/22 05:26 74 96 07/15/22 05:21 60 97 07/15/22 05:18 58 L 126/79 07/15/22 05:16 73 98 07/15/22 05:11 101 H 97 07/15/22 05:06 63 95 07/15/22 05:03 60 127/75 07/15/22 05:01 60 95 07/15/22 05:00 62 94 07/15/22 04:56 66 95 07/15/22 04:53 67 94 07/15/22 04:51 86 97 07/15/22 04:48 56 L 125/69 07/15/22 04:46 61 97 07/15/22 04:41 61 97 07/15/22 04:36 62 95 07/15/22 04:33 62 120/64 07/15/22 04:31 61 95 07/15/22 04:28 66 94 07/15/22 04:26 60 95 07/15/22 04:21 116 H 99 07/15/22 04:19 93 H 138/79 07/15/22 04:16 90 96 07/15/22 04:11 77 99 07/15/22 04:06 63 96 07/15/22 04:03 62 132/71 07/15/22 04:01 72 96 07/15/22 03:56 60 96 07/15/22 03:51 61 95 07/15/22 03:50 65 94 07/15/22 03:48 62 133/70 07/15/22 03:46 64 95 07/15/22 03:41 62 95 07/15/22 03:38 66 94 07/15/22 03:36 63 95 07/15/22 03:33 61 134/72 07/15/22 03:31 63 96 07/15/22 03:26 62 96 07/15/22 03:21 65 97 07/15/22 03:18 63 132/71 07/15/22 03:16 64 99 07/15/22 03:15 69 94 07/15/22 03:11 66 96 07/15/22 03:06 64 96 07/15/22 03:03 64 136/69 07/15/22 03:01 76 100 07/15/22 02:56 60 100 07/15/22 02:51 67 100 07/15/22 02:48 64 131/71 07/15/22 02:46 64 100 07/15/22 02:41 80 99 07/15/22 02:36 71 95 07/15/22 02:34 64 131/67 07/15/22 02:31 69 96 07/15/22 02:26 68 95 07/15/22 02:21 64 96 07/15/22 02:18 67 136/79 07/15/22 02:16 85 98 07/15/22 02:11 89 97 07/15/22 01:45 18 07/15/22 01:45 18 07/15/22 01:55 18 07/15/22 01:55 18 07/15/22 02:06 80 96 07/15/22 02:03 98.4 F 74 129/75 07/15/22 02:01 75 97 07/15/22 01:58 95 H 136/80 07/15/22 01:56 84 98 07/15/22 01:52 95 H 140/81 07/15/22 01:51 94 H 97 07/15/22 01:50 98 H 20 130/79 07/15/22 01:48 89 132/78 07/15/22 01:46 92 H 131/77 98 07/15/22 01:44 85 134/76 07/15/22 01:42 76 139/87 07/15/22 01:41 71 97 07/15/22 01:40 80 134/84 07/15/22 01:36 64 99 07/15/22 01:31 95 H 99 07/15/22 01:26 97 H 99 07/15/22 01:21 76 98 07/15/22 01:16 71 100 07/15/22 01:11 74 96 07/15/22 01:06 74 99 07/15/22 01:01 73 99 07/15/22 00:24 69 130/76 07/14/22 23:54 67 133/77 07/14/22 23:24 66 122/69 07/14/22 22:54 77 136/80 07/14/22 22:24 71 136/83 07/14/22 21:53 71 140/74 07/14/22 21:30 70 147/65 H 07/14/22 21:00 78 136/85 07/14/22 20:31 70 143/78 H 07/14/22 20:00 71 142/84 H 07/14/22 19:30 64 151/88 H 07/14/22 19:06 98.4 F 71 18 138/86 07/14/22 18:30 64 136/82 07/14/22 18:00 63 138/89 07/14/22 17:40 18 07/14/22 17:40 98.8 F 18 07/14/22 17:31 73 148/84 H Transfer of Care Handoff Completed per policy Notes Mental Status: alert / awake / arousable and participated in evaluation Nausea / Vomiting: adequately controlled Pain: adequately controlled Airway Patency, RR, SpO2: stable & adequate BP & HR: stable & adequate Hydration State: stable & adequate Neuraxial Anesthesia: was administered and sensory block is resolving Anesthetic Complications: no major complications apparent and Pt Satisfied with anesthetic care
--- NOTE | 2022-07-15 17:12 | Operative Report ---
PG Post Operative Report Pre & Post Diagnosis Operation Date: 07/15/22 15:10 Pre-Op Diagnosis: 1. intrauterine pregnacy at 39 weeks 2.Non-reassuring heart tones 3.Inability to augment 4.+ ssa antibody Post-Op Diagnosis: 1. intrauterine pregnacy at 39 weeks 2.Non-reassuring heart tones 3.Inability to augment 4.+ ssa antibody I identified the patient and participated in the time-out.: Yes Procedure Operation Date: 07/15/22 15:10 Actual Procedures p Primary Low Transverse Section in LD, Live Female born 07/15/2023 @ 1601 - Ivonne Avendano MD Surgeon Ivonne Avendano MD Dairy Farmworker MD Zhang PGY1 Estimated Blood Loss 700 Findings Consistent with Post-Op Diagnosis Normal appearing uterus, bilateral fallopian tubes and ovaries. Viable female weighin 5lbs 15oz with APGARs of 9 and 9 at 1 and 5 minutes respectively. Meconium fluid noted after delivery. Fluids 2L Crystalloid, 440cc uop clear urine by merchant catheter Specimens Placenta, cord blood, cord gases Drains Merchant draining clear urine Anesthesia Type L&D Only Epidural Exists Complications none Disposition Accompanied Patient To Recovery: Yes Disposition: L&D Indications 32 yo G1 at 39 2/7 wga presented one day ago for routine OB visit and monitoring due to +SSA antibody in preparation for planned induction. During NST, was noted to be reassuring but non-reactive. BPP was obtained and was 6/8. Given GA, was recommended to proceed with induction. Induction was begun with merchant bulb and pitocin. Following merchant bulb expulsion, pitocin was titrated up and she received an epidural for pain control. Overnight, multiple variables were noted and so pitocin was turned off for recovery. A few hours later, pitocin was restarted and she then underwent AROM. Pitocin was attempted to be titrated up however did require frequent position changes due to intermittent variable and late decelerations. Pitocin was able to slowly be increased however over time, however fetus began having recurrent variables and late decelerations. At this time, discussion was had regarding intolerance to labor and recommended for CS. Description of Procedure The patient was taken to the operating room after consents were ensured. The patient was properly identified. Epidural anesthesia was bolused. The patient was placed in a dorsal supine position with left lateral tilt, then prepped and draped in normal sterile fashion. Surgical time out was performed. Antibiotics were given for prophylaxis. Anesthesia was tested to ensure adequate surgical levels. Pfannenstiel skin incision was performed and carried down to the underlying fascia with a knife. The fascia was then nicked in the midline and extended laterally with pickups and Curry scissors. Superior portion of the fascia was grasped with Kochers x2 and elevated off the underlying rectus muscles using blunt dissection. Inferior portion of the fascia was then grasped with Petra clamps x2 and also elevated off the underlying muscles with blunt dissection. Midline was identified. The peritoneum was then entered and extended to provide adequate room for delivery of baby. A hand was inserted into the abdomen, uterus was noted to be clear of adhesions. Bladder blade was inserted, bladder flap was created in the usual fashion. A low transverse uterine incision was made in the uterus and extended bluntly in a superior to inferior fashion. head was grasped and elevated through the hysterotomy in an atraumatic fashion. The baby delivered in BLAYNE position, loose nuchal cord was reduced. Remainder of the body delivered without incident with meconium fluid noted following delivery. Nose and mouth were bulb suctioned on the surgical field. The cord was double clamped and cut, baby was handed off to awaiting pediatrics staff. Cord segment and blood were obtained. Placenta was then expressed from the uterus. The uterus was exteriorized. Several passes were made inside the uterus to remove the remaining membranes. Attention was then turned to the hysterotomy, which was then closed with a running locked suture of 0 Vicryl on a CTX needle. An imbricating layer was then performed using 0-Monocryl. There was noted to be continued ooze across the hysterotomy so this was secured with another layer of 0-Monocryl. There was noted to be good hemostasis. The posterior cul-de-sac was then inspected and cleaned of clot and debris. The hysterotomy was again inspected and noted to be hemostatic. The uterus was returned to the abdomen. The right and left pericolic gutters were cleaned of all clot and debris. The hysterotomy was again noted to be hemostatic. Space of Retzius was noted to be hemostatic. Day was applied to the hysterotomy and the rectus layer. The fascia was then closed with a running suture of 0 Vicryl on a CT1 needle. Subcutaneous tissue was copiously irrigated and noted to be hemostatic. Subcutaneous tissue was re-approximated using 2-0 plain gut. The skin was then closed with a running suture of 3-0 Monocryl in a subcuticular fashion. At termination of the procedure, fundal pressure was applied and a moderate amount of lochia was expressed. Pressure d ressing was applied to the patient. She tolerated the procedure well. All sponge, needle, instrument counts were correct x 2. I attest to the content of the Intraoperative Record and any orders documented therein. Any exceptions are noted below. OB Procedure Charges 08172
[2022-07-15] MEDS ORDERED: DIPHTHERIA/TETANUS/PERTUSSIS 0.5mL SYR/VIAL (Age 7+yrs) IM ONE (17:25)
[2022-07-15] MEDS ORDERED: HYDROCORTISONE ACETATE 25 MG SUPP PR PRN (17:25)
[2022-07-15] MEDS ORDERED: MAGNESIUM HYDROXIDE SUSP 30 ML UDC PO PRN (17:25)
[2022-07-15] MEDS ORDERED: BENZOCAINE 20% AER SPR 82.5 GM CAN EXT PRN (17:25)
[2022-07-15] MEDS ORDERED: SENNA 8.6 MG TAB PO PRN (17:25)
[2022-07-15] MEDS ORDERED: OXYTOCIN 20 UNITS in LACTATED RINGER'S 1,000 ML IV SCH (17:30)
[2022-07-15] MEDS: SIMETHICONE 80 MG CHEW PO SCH (20:54)
[2022-07-15] MEDS: DOCUSATE SODIUM 100 MG CAP PO SCH (20:54)
[2022-07-15] MEDS ORDERED: LACTATED RINGER'S 1,000 ML IV SCH (23:45)
[2022-07-16] MEDS: KETOROLAC 30 MG/ML VIAL IV PRN ×2 (02:36→07:51)
--- NOTE | 2022-07-16 05:48 | Obstetrical Progress Note ---
Date of Service <Rosa Holcomb DO - Last Filed: 07/16/22 07:07> July 16, 2022 Assessment & Plan <Rosa Holcomb DO - Last Filed: 07/16/22 07:07> (1) Status post section: plan for d/c Merchant, do a trial of OOB and ambulation and then progress diet as tolerated - will order abdominal binder to see if it will help with generalized abdominal pain <Ivonne Avendano MD - Last Filed: 07/16/22 07:22> (1) Status post section: Subjective <Rosa Holcomb DO - Last Filed: 07/16/22 07:07> Diana is a 32 y/o female who is POD #1 following delivery at 39 2/7 weeks. She reports feeling well overall this morning. Mild abdominal cramping and generalized abdominal pain, well managed on analgesics. Merchant is still in place. Tolerating fluids overnight. No ambulation yet. Has not passed gas and no bowel movement. Has some persistent lochia with some improvement this morning. Currently breast feeding. Review of Systems Denies fever, chills, sweats Denies shortness of breath, difficulty breathing, chest pain, palpitations, chest pressure. Denies breast pain. Denies dysuria. Denies headache or changes in vision. Physical Exam <Rosa Holcomb DO - Last Filed: 07/16/22 07:07> General: Alert, oriented. No acute distress. Cardiac: Regular rate and rhythm, no murmurs/rubs/gallops. Respiratory: Clear to auscultation bilaterally a/p, no wheezes/rales/rhonchi. No increased work of breathing. Symmetrical chest rise. No respiratory distress. Abdomen: Soft, nontender, nondistended. Bowel sounds present. Uterus: Uterine fundus firm, palpable 1 cm below umbilicus. Surgical dressing in place, clean and dry. Lower Extremities: No lower extremity edema or swelling. No deep calf pain. Chanell's negative bilaterally. Results & Data ([facility]) <Rosa Holcomb DO - Last Filed: 07/16/22 07:07> Vital Signs (Past 12 Hours) Vital Signs Temp Pulse Pulse Resp BP BP Pulse Ox 07/16/22 04:00 18 96 07/16/22 03:47 36.9 C 85 18 120/68 96 07/16/22 02:55 16 96 07/16/22 02:00 18 99 07/16/22 01:00 16 98 07/15/22 22:50 18 97 07/16/22 00:00 18 99 07/15/22 19:45 07/15/22 22:45 36.9 C 85 18 143/82 H 98 07/15/22 21:00 16 97 07/15/22 22:04 16 96 07/15/22 20:00 18 98 07/15/22 20:10 36.4 C L 75 18 143/84 H 98 07/15/22 19:08 20 07/15/22 18:38 18 07/15/22 18:08 18 07/15/22 18:08 18 07/15/22 17:58 18 07/15/22 17:48 18 07/15/22 19:14 95 H 96 07/15/22 19:09 86 96 07/15/22 19:10 77 137/79 07/15/22 19:04 96 H 96 07/15/22 18:59 86 95 07/15/22 19:00 82 147/80 H 07/15/22 18:54 85 95 07/15/22 18:49 81 95 07/15/22 18:50 82 142/77 H 07/15/22 18:44 75 95 07/15/22 18:39 81 96 07/15/22 18:40 77 133/75 07/15/22 18:34 81 95 07/15/22 18:29 90 96 07/15/22 18:30 88 124/70 07/15/22 18:24 81 95 07/15/22 18:19 88 96 07/15/22 18:20 86 124/63 07/15/22 18:14 97 07/15/22 18:14 90 07/15/22 18:14 91 H 94 07/15/22 18:09 91 H 95 07/15/22 18:10 93 H 125/66 07/15/22 18:04 96 H 95 07/15/22 18:01 92 H 124/64 07/15/22 17:59 97 H 96 07/15/22 17:54 90 96 07/15/22 17:50 92 H 123/74 07/15/22 17:49 95 H 96 O2 Del Method 07/16/22 04:00 07/16/22 03:47 Room Air 07/16/22 02:55 07/16/22 02:00 07/16/22 01:00 07/15/22 22:50 07/16/22 00:00 07/15/22 19:45 Room Air 07/15/22 22:45 Room Air 07/15/22 21:00 07/15/22 22:04 07/15/22 20:00 07/15/22 20:10 Room Air 07/15/22 19:08 07/15/22 18:38 07/15/22 18:08 07/15/22 18:08 07/15/22 17:58 07/15/22 17:48 07/15/22 19:14 07/15/22 19:09 07/15/22 19:10 07/15/22 19:04 07/15/22 18:59 07/15/22 19:00 07/15/22 18:54 07/15/22 18:49 07/15/22 18:50 07/15/22 18:44 07/15/22 18:39 07/15/22 18:40 07/15/22 18:34 07/15/22 18:29 07/15/22 18:30 07/15/22 18:24 07/15/22 18:19 07/15/22 18:20 07/15/22 18:14 07/15/22 18:14 07/15/22 18:14 07/15/22 18:09 07/15/22 18:10 07/15/22 18:04 07/15/22 18:01 07/15/22 17:59 07/15/22 17:54 07/15/22 17:50 07/15/22 17:49 <Ivonne Avendano MD - Last Filed: 07/16/22 07:22> Co-Signing Physician Notes Resident Physician Supervision Note: I interviewed and examined the patient. Discussed with Dr. Holcomb and agree with findings and plan as documented in the note. Any exceptions or clarifications are listed here: POD1 s/p PLTCS due to nrfht, doing well. Pain adequately managed with meds just sore. Merchant in place, not yet ambulating. VSS, exam benign and wnl. Dressing c/d/i. Remove merchant and progress activities today, will remove dressing in shower. Continue routine pp care, binder ordered Documented By: Ivonne Avendano MD Resident Activity Tracking <Rosa Holcomb, DO - Last Filed: 07/16/22 07:07> Resident Involvement: Resident Care Provided Care Provided: OB Delivery (post )
[2022-07-16 07:08] LABS: Basophils # (auto) 0.03 K/uL (0-0.2); Basophils % (auto) 0.3 %; Eosinophils # (auto) 0.01 K/uL (0-0.50); Eosinophils % (auto) 0.1 %; Hematocrit (blood only) 24.1 % (37.0-47.0); Immature Granulocytes # (auto) 0.04 K/uL (0.01-0.20); Immature Granulocytes % (auto) 0.4 %; Lymphocytes # (auto) 1.43 K/uL (1.2-3.4); Lymphocytes % (auto) 12.6 %; Mean Corpuscular Hemoglobin 30.1 pg (25.0-34.0); Mean Corpuscular Hgb Conc 33.2 g/dL (32.0-36.0); Mean Corpuscular Volume 90.6 fL (80.0-100.0); Mean Platelet Volume 11.2 fL (9.4-12.4); Monocytes # (auto) 0.51 K/uL (0.11-0.59); Monocytes % (auto) 4.5 %; Neutrophils # (auto) 9.29 K/uL (1.40-6.50); Neutrophils % (auto) 82.1 %; Platelet Count 170 K/uL (130-400); RDW Coefficient of Variation 13.7 % (11.5-14.5); RDW Standard Deviation 44.8 fL (36.4-46.3); Red Blood Count 2.66 M/uL (4.20-5.40); White Blood Count 11.31 K/ul (4.8-10.8)
[2022-07-16] MEDS: PRENATAL VITAMIN 1 TAB PO SCH (07:50)
[2022-07-16] MEDS: DOCUSATE SODIUM 100 MG CAP PO SCH ×2 (07:50→20:20)
[2022-07-16] MEDS: FERROUS SULFATE 325 MG TAB PO SCH (07:50)
[2022-07-16] MEDS: SIMETHICONE 80 MG CHEW PO SCH ×4 (07:51→20:20)
[2022-07-16] MEDS ORDERED: diphenhydrAMINE 50 MG/ML VIAL IV PRN (10:03)
[2022-07-16] MEDS ORDERED: ONDANSETRON INJ 2 MG/ML 2 ML VIAL IV PRN (10:03)
[2022-07-16] MEDS ORDERED: diphenhydrAMINE Capsule 25 MG CAP PO PRN (10:03)
[2022-07-16] MEDS ORDERED: PROMETHAZINE HCL 25 MG in SODIUM CHLORIDE 0.9% 50 ML IV PRN (10:03)
[2022-07-16] MEDS: IBUPROFEN 600 MG TAB PO PRN ×3 (12:24→20:20)
[2022-07-16] MEDS: oxyCODONE/ACETAMINOPHEN 5mg/325mg TAB PO PRN ×3 (12:24→20:20)
[2022-07-16] MEDS ORDERED: bisacodyL 5 MG TABEC PO SCH (20:00)
[2022-07-17] MEDS: oxyCODONE/ACETAMINOPHEN 5mg/325mg TAB PO PRN ×5 (00:33→21:19)
[2022-07-17] MEDS: IBUPROFEN 600 MG TAB PO PRN ×5 (00:34→21:19)
--- NOTE | 2022-07-17 05:29 | Obstetrical Progress Note ---
Date of Service <Rosa BlackburnDave ZhangDO - Last Filed: 07/17/22 06:26> July 17, 2022 Assessment & Plan <Rosa BlackburnDave Holcomb DO - Last Filed: 07/17/22 06:26> (1) Status post section: continue OOB and ambulation and progress diet as tolerated - plan for 6 week post f/u <Nirali Galeana MD - Last Filed: 07/17/22 07:51> (1) Status post section: Subjective <Rosa S. DO Zhang - Last Filed: 07/17/22 06:26> Diana is a 32 y/o female who is POD #2 following delivery at 39 2/7 weeks. She reports feeling well this morning. Mild abdominal cramping and generalized abdominal pain, well managed on analgesics. Voiding. Tolerating full diet. Some ambulation. Is passing gas and no bowel movement. Has some persistent lochia with some improvement this morning. Currently breast feeding. Review of Systems Denies fever, chills, sweats Denies shortness of breath, difficulty breathing, chest pain, palpitations, chest pressure. Denies breast pain. Denies dysuria. Denies headache or changes in vision. Physical Exam <Rosa SDave Holcomb DO - Last Filed: 07/17/22 06:26> General: Alert, oriented. No acute distress. Cardiac: Regular rate and rhythm, no murmurs/rubs/gallops. Respiratory: Clear to auscultation bilaterally a/p, no wheezes/rales/rhonchi. No increased work of breathing. Symmetrical chest rise. No respiratory distress. Abdomen: Soft, nontender, nondistended. Uterus: Uterine fundus firm, palpable 1 cm below umbilicus. Surgical scar, non erythematous and without discharge. Lower Extremities: No lower extremity edema or swelling. No deep calf pain. Chanell's negative bilaterally. Results & Data ([facility]) <Rosa BlackburnDave Holcomb DO - Last Filed: 07/17/22 06:26> Vital Signs (Past 12 Hours) Vital Signs Temp Pulse Resp BP Pulse Ox O2 Del Method 07/16/22 23:50 37.2 C 88 16 127/81 97 Room Air 07/16/22 20:30 Room Air 07/16/22 20:30 37.2 C 97 H 20 133/83 98 Room Air <Nirali Galeana MD - Last Filed: 07/17/22 07:51> Laboratory Results Laboratory Results - last 24 hr 07/17/22 06:06 Hgb 7.7 L Hct 23.6 L <Nirali Galeana MD - Last Filed: 07/17/22 07:51> Co-Signing Physician Notes Resident Physician Supervision Note: I interviewed and examined the patient. Discussed with Dr. Holcomb and agree with findings and plan as documented in the note. Any exceptions or clarifications are listed here: [ ] Documented By: Nirali Galeana MD, FACOG Resident Activity Tracking <Rosa Holcomb, - Last Filed: 07/17/22 06:26> Resident Involvement: Resident Care Provided Care Provided: OB Delivery (post )
[2022-07-17 06:25] LABS: Hematocrit (blood only) 23.6 % (37.0-47.0); Hemoglobin 7.7 g/dl (12.0-16.0)
[2022-07-17] MEDS: PRENATAL VITAMIN 1 TAB PO SCH (07:50)
[2022-07-17] MEDS: DOCUSATE SODIUM 100 MG CAP PO SCH ×2 (07:50→21:27)
[2022-07-17] MEDS: SIMETHICONE 80 MG CHEW PO SCH ×4 (07:50→21:27)
[2022-07-17] MEDS: FERROUS SULFATE 325 MG TAB PO SCH (07:50)
[2022-07-17] MEDS ORDERED: bisacodyL 10 MG SUPP PR PRN (16:56)
[2022-07-18] MEDS: IBUPROFEN 600 MG TAB PO PRN ×5 (01:22→20:02)
[2022-07-18] MEDS: oxyCODONE/ACETAMINOPHEN 5mg/325mg TAB PO PRN ×4 (01:23→20:02)
[2022-07-18] MEDS: SIMETHICONE 80 MG CHEW PO SCH ×4 (07:57→20:02)
[2022-07-18] MEDS: DOCUSATE SODIUM 100 MG CAP PO SCH ×2 (07:57→20:02)
[2022-07-18] MEDS: FERROUS SULFATE 325 MG TAB PO SCH (07:57)
[2022-07-18] MEDS: PRENATAL VITAMIN 1 TAB PO SCH (07:58)
--- NOTE | 2022-07-18 10:13 | Obstetrical Progress Note ---
Date of Service July 18, 2022 Assessment & Plan (1) Status post section: Plan Doing well. Routine care. Home tomorrow. Day #:: 3 Subjective Ambulation: ambulating normally Voiding: no voiding problems Passing Gas:: Yes Diet Tolerance:: regular diet Lochia:: Small Feeding Type:: breast feeding Pain controlled. Patient did notice a little bit of chest tightness when she was walking yesterday. No cp/sob. Physical Exam Constitutional WD/WN, vitals as above Cardiovascular Extremities: + edema (tr); no calf tenderness Gastrointestinal (Abdomen) obese, soft, appro tender, ff at u incision c/d/i Results & Data ([facility]) Vital Signs (Past 12 Hours) Vital Signs Temp Pulse Resp BP Pulse Ox O2 Del Method 07/18/22 07:40 Room Air 07/18/22 07:40 36.8 C 78 18 134/85 98 Room Air 07/17/22 23:20 36.7 C 72 18 139/85 Room Air
[2022-07-18 22:02] LABS: Hemoglobin 8.2 g/dl (12.0-16.0); Mean Corpuscular Hemoglobin 29.5 pg (25.0-34.0); Mean Corpuscular Hgb Conc 32.8 g/dL (32.0-36.0); Mean Corpuscular Volume 89.9 fL (80.0-100.0); Mean Platelet Volume 10.8 fL (9.4-12.4); Platelet Count 261 K/uL (130-400); RDW Coefficient of Variation 13.5 % (11.5-14.5); RDW Standard Deviation 44.1 fL (36.4-46.3); Red Blood Count 2.78 M/uL (4.20-5.40); White Blood Count 5.95 K/ul (4.8-10.8)
[2022-07-18 22:18] LABS: BUN Creatinine Ratio 12.2 (10-20); Bilirubin,Total 0.3 mg/dl (0.2-1.0); Calcium 9.1 mg/dl (8.5-10.1); Est GFR (African American) 123.4 ml/min; Est GFR (Non-African American) 106.4 ml/min
[2022-07-19] MEDS: oxyCODONE/ACETAMINOPHEN 5mg/325mg TAB PO PRN ×2 (04:54→11:43)
[2022-07-19] MEDS: IBUPROFEN 600 MG TAB PO PRN ×2 (04:54→11:43)
--- NOTE | 2022-07-19 06:01 | Obstetrical Progress Note ---
Date of Service <Rosa Holcomb DO - Last Filed: 07/19/22 07:03> July 19, 2022 Assessment & Plan <Rosa Holcomb DO - Last Filed: 07/19/22 07:03> (1) Status post section: continue OOB and ambulation and progress diet as tolerated - plan for 6 week post f/u - discharge instructions reviewed - Will see transportation consultant prior to discharge (2) Elevated blood pressure reading: - elevated blood pressure overnight - No signs of HTN emergency/preeclampsia - will follow up in 3-4 days in office for BP check <Raissa Fields MD, FACOG - Last Filed: 07/19/22 07:16> (1) Status post section: (2) Elevated blood pressure reading: Subjective <Rosa Holcomb DO - Last Filed: 07/19/22 07:03> Diana is a 32 y/o female who is POD #4 following delivery at 39 2/7 weeks. She reports feeling well this morning. Mild abdominal cramping and generalized abdominal pain, well managed on analgesics. Voiding. Tolerating full diet. Some ambulation. Is passing gas and no bowel movement. Has some persistent lochia with some improvement this morning. Currently breast feeding. Would like to see transportation consultant this morning. Review of Systems Denies fever, chills, sweats Denies shortness of breath, difficulty breathing, chest pain, palpitations, chest pressure. Denies breast pain. Denies dysuria. Denies headache or changes in vision. Physical Exam <Rosa Holcomb DO - Last Filed: 07/19/22 07:03> General: Alert, oriented. No acute distress. Cardiac: Regular rate and rhythm, no murmurs/rubs/gallops. Respiratory: Clear to auscultation bilaterally a/p, no wheezes/rales/rhonchi. No increased work of breathing. Symmetrical chest rise. No respiratory distress. Abdomen: Soft, nontender, nondistended. Uterus: Uterine fundus firm, palpable 2 cm below umbilicus. Surgical scar, non erythematous and without discharge. Lower Extremities: No lower extremity edema or swelling. No deep calf pain. Chanell's negative bilaterally. Results & Data ([facility]) <Rosa Holcomb DO - Last Filed: 07/19/22 07:03> Vital Signs (Past 12 Hours) Vital Signs Temp Pulse Resp BP BP O2 Del Method 07/19/22 05:20 71 135/87 07/18/22 23:05 36.6 C 80 18 148/90 H Room Air 07/18/22 21:00 76 154/82 H 07/18/22 19:35 36.6 C 69 18 153/92 H Room Air <Raissa Fields MD, FACOG - Last Filed: 07/19/22 07:16> Co-Signing Physician Notes Resident Physician Supervision Note: I interviewed and examined the patient. Discussed with Dr. Holcomb and agree with findings and plan as documented in the note. Any exceptions or clarifications are listed here: Doing well. Had a arias yesterday that was like her normal migraine that has resolved. Borderline blood pressures. neg ros for pet. Labs were negative last night. Plan d/c home. Precautions given. Documented By: Raissa Fields MD, FACOG Resident Activity Tracking <Rosa Holcomb DO - Last Filed: 07/19/22 07:03> Resident Involvement: Resident Care Provided Care Provided: OB Delivery (Post )
[2022-07-19] MEDS: PRENATAL VITAMIN 1 TAB PO SCH (08:31)
[2022-07-19] MEDS: SIMETHICONE 80 MG CHEW PO SCH (08:32)
[2022-07-19] MEDS: DOCUSATE SODIUM 100 MG CAP PO SCH (08:32)
[2022-07-19] MEDS: FERROUS SULFATE 325 MG TAB PO SCH (08:32)
--- NOTE | 2022-07-20 14:48 | Discharge Summary ---
Date of Service July 20, 2022 Admission HPI Per Admitting Provider 32yo @ 39 1/7, presented to office today in advance of tomorrow's scheduled IOL. She is undergoing testing d/t Sjogrens antibody, and nonstress test was nonreactive, and then subsequent BPP was 6/8. She was directed to L&D for induction of labor. with: Vegan diet -pnv, discussed Migraines- stopped propranolol and imitrex with . Will notify us if PCP needs to restart her beta maria esther, aware we would need growth scans. s[place]p [place] [facility] [place] request-sjogrens antibody flagged 1.0 *[place] [facility] [place]Per [place] Consult Notes *Growth Scan Q4wks *Wkly NST's @ 36 wks *Rec Delivery at or after 39 weeks but not over 40 Discharge Data Procedures Performed Operation Date: 07/15/22 15:10 Actual Procedures p Section in LD, Live Female infant born 07/15/2023 @ 1601 - Ivonne Avendano MD Hospital Course (1) Status post section: (2) SS-A antibody positive: Plan 32 yo G1 at 39 2/7 wga presented one day ago for routine OB visit and monitoring due to +SSA antibody in preparation for planned induction. During NST, was noted to be reassuring but non-reactive. BPP was obtained and was 6/8. Given GA, was recommended to proceed with induction. Induction was begun with merchant bulb and pitocin. Following merchant bulb expulsion, pitocin was titrated up and she received an epidural for pain control. Overnight, multiple variables were noted and so pitocin was turned off for recovery. A few hours later, pitocin was restarted and she then underwent AROM. Pitocin was attempted to be titrated up however did require frequent position changes due to intermittent variable and late decelerations. Pitocin was able to slowly be increased however over time, however fetus began having recurrent variables and late decelerations. At this time, discussion was had regarding intolerance to labor and recommended for CS. See operative report for details. Post-operative course was uncomplicated until mild range BPs were noted evening prior to discharge without persistent PIH symptoms and normal labs. She was discharged home with plan to have BP check in office later this week. Coding Level of Care Code None Diagnoses Status post section Z98.891 SS-A antibody positive R76.8
== END 2022-07-19 12:45 | disposition home or self-care (01) | DRG 788 ==
LOC: 4S1 14:16 → 4E2 07-15 19:38